=== PATIENT | female | born 1955 | race Caucasian/White ===

== ENCOUNTER → 2017-02-16 | Day surgery (SDC) | payer OTHER ==
[~2017-02-16] VITALS: Ht 162.5 cm; Wt 68.0 kg
[~2017-02-16] MED LIST: ALBUTEROL0.09 MG/A2 IH; ASPIRIN ADULT L81 M1 PO; ATIVAN0.5 MG PO; BACTRIM DS 8001 TA1 PO; BUSPAR10 MG PO; CALCITRIOL0.25 MCG PO; CALCIUM; COREG; FOLIC ACID1 MG PO; FOSAMAX70 MG PO; LAMOTRIGINE; LIDODERM5% TP; MAGNESIUM; NORVASC10 MG PO; NUCYNTA50 MG PO; PRAVASTATIN SOD40 MG PO; PRILOSEC20 MG PO; SEROQUEL50 MG PO; SYNTHROID,LEV150 MCG PO; VIBRAMYCIN100 MG PO; VICODIN 5-3001 EACH PO; VIT D; VOLTAREN; ZANAFLEX2 M1 PO
--- NOTE | ~2017-02-16 | O ---
[place], [place] OPERATIVE NOTE NAME: DAQUAN GIORDANO UNIT #: [id number] ROOM: DOCTOR: OLEG MANLEY MD BIRTHDATE: [birth year] DOS: 02/16/2017 GASTROENDOSCOPIC REPORT HISTORY OF PRESENT ILLNESS: A 61-year-old patient presented with chief complaint of colonic screening, undergoing investigation. ALLERGIES: MORPHINE AND IVP DYE. FAMILY HISTORY: Mother with colonic carcinoma. PAST MEDICAL HISTORY: Hypertension, hypercholesterolemia. PAST SURGICAL HISTORY: Thyroid, Mediport cholecystectomy, wrist surgery, coronary artery stents. SOCIAL HISTORY: Nonsmoker, nonalcohol consumer. PROCEDURE: Today's procedure part of investigation is colonoscopy plus polypectomy. PREMEDICATION: Versed and Diprivan. SCOPE: Olympus forward-viewing colonoscope 10L video. REPORT: After putting the patient in the left lateral position and application of lubricant to the scope, the scope was introduced. Thereafter, under direct visualization, I advanced through the length of colon without difficulty. Base of the cecum explored, appendiceal orifice identified, and ileocecal valve was defined. The scope was gradually withdrawn back to the sigmoid colon. Sessile polypoid lesion with piecemeal polypectomy was removed. The patient extubated, tolerated procedure well. IMPRESSION: Sessile colonic polyp, sigmoid colon, status post piecemeal polypectomy. PLAN: High fiber diet. ACTIVITY: Ad gloria. FOLLOWUP: Routinely with you in office, p.r.n. visit with us in GI Clinic. I thank you very much indeed for your kind referral. Sincerely, [place], [place] OPERATIVE NOTE NAME: DAQUAN GIORDANO UNIT #: [id number] ROOM: DOCTOR: OLEG MANLEY MD BIRTHDATE: [birth year] OLEG MANLEY MD CM:OPRECORD:OPERATIVE NOTE [id number] OLEG MANLEY MD 02/16/172003 interface
[2017-02-16 14:32] VITALS: BP 135/71
[2017-02-16 14:34] VITALS: BP 124/74
[2017-02-16 14:51] VITALS: BP 132/75
[2017-02-16 15:17] VITALS: BP 150/76
== END | disposition home or self-care (01) ==
LOC: SDC 02-14 08:45
DX: Z12.11 Encounter for screening for malignant neoplasm of colon (principal); K63.5 Polyp of colon; I10 Essential (primary) hypertension; E78.00 Pure hypercholesterolemia, unspecified; Z80.0 Family history of malignant neoplasm of digestive organs; Z95.818 Presence of other cardiac implants and grafts; Z98.890 Other specified postprocedural states; Z86.73 Personal history of transient ischemic attack (TIA), and cerebral infarction without residual deficits; J45.909 Unspecified asthma, uncomplicated; D84.8 Other specified immunodeficiencies; F17.210 Nicotine dependence, cigarettes, uncomplicated; Z83.3 Family history of diabetes mellitus; Z82.49 Family history of ischemic heart disease and other diseases of the circulatory system; Z82.3 Family history of stroke

== ENCOUNTER → 2017-04-09 | Outpatient (CLI) | payer OTHER | END | disposition home or self-care (01) | LOC: LAB 15:46 | DX: D83.9 Common variable immunodeficiency, unspecified (principal) ==

== ENCOUNTER 2017-05-10 11:40 | Emergency (ER) | payer OTHER ==
[~2017-05-10] VITALS: Ht 162.5 cm; Wt 72.6 kg
[2017-05-10 11:50] VITALS: BP 120/72
== END 2017-05-10 14:42 | disposition home or self-care (01) ==
LOC: ED 11:40
DX: S63.502A Unspecified sprain of left wrist, initial encounter (principal); Z79.82 Long term (current) use of aspirin; Z88.6 Allergy status to analgesic agent; Z90.49 Acquired absence of other specified parts of digestive tract; Z91.041 Radiographic dye allergy status; W18.30XA Fall on same level, unspecified, initial encounter; Y93.89 Activity, other specified; Y92.9 Unspecified place or not applicable; Y99.9 Unspecified external cause status

== ENCOUNTER 2017-07-18 10:32 | Inpatient (IN) | payer OTHER ==
[~2017-07-18] VITALS: Ht 162.5 cm; Wt 74.2 kg
--- NOTE | ~2017-07-18 | PR ---
[place], [place] PROGRESS NOTE NAME: DAQUAN GIORDANO UNIT #: [id number] ROOM: 522 DOCTOR: SYLVAIN VU MD BIRTHDATE: [birth year] DOS: 07/20/2017 SUBJECTIVE: She has noticed partial reduction in symptoms of cough. She has noticed small amount of sputum expectoration. Wheezing were noted somewhat decreased. There were no symptoms of chest pain. OBJECTIVE: VITAL SIGNS: Normal temperature, respiratory rate 20, heart rate 84, blood pressure 135/76. Pulse oxygen saturation recorded on 2 liters nasal cannula 95% saturation. HEENT: No acute change. NECK: Supple. CARDIOVASCULAR: S1, S2 audible. LUNGS: Moderate decreased breath sounds with [id number] expiratory wheezing, partially decreased from previous examination. ABDOMEN: Soft, nontender. EXTREMITIES: Showed no edema. LABORATORY DATA: BMP today; glucose 202, otherwise noted normal. The blood culture from the showed no bacterial growth in 2 cultures. The chest x-ray 2-view for this patient that was ordered. The patient this morning was personally reviewed, shows increased interstitial marking in the lower lungs with the current chest x-ray. There were no discrete pulmonary fibrotic changes noted. Granuloma was also suspected scattered in the lungs. IMPRESSION: The patient with acute exacerbation of chronic obstructive pulmonary disease with acute tracheobronchitis. The patient is responding to treatment at this time. Leukocytosis was still noted. PLAN OF TREATMENT: Continuation of the bronchodilators with oxygen supplementation as in progress. The dose of the Solu-Medrol will be changed to the lower dose of Solu-Medrol from 60 mg to 40 mg every 8 hours. In the meantime, continue all supportive therapy, plan of management, sputum culture. The patient is able to expectorate sputum. We will be monitored. Monitoring the leukocytosis partly may be related to use of corticosteroids. Other supportive therapy, plan of management and care. [place], [place] PROGRESS NOTE NAME: DAQUAN GIORDANO UNIT #: [id number] ROOM: 522 DOCTOR: SYLVAIN VU MD BIRTHDATE: [birth year] SYLVAIN MORIN MD CM:[id number] SYLVAIN VINES MD 07/21/177 interface
--- NOTE | ~2017-07-18 | PR ---
[place], [place] PROGRESS NOTE NAME: DAQUAN GIORDANO UNIT #: [id number] ROOM: 522 DOCTOR: MIKEL VINES MD,SYLVAIN BIRTHDATE: [birth year] DOS: 07/21/2017 SUBJECTIVE: She has been noted with significant reduction and improvement in the respiratory symptoms in the last 24 hours. Shortness of breath and cough has been resolving. There were no symptoms of chest pain. She has been receiving intravenous Levaquin. OBJECTIVE: VITAL SIGNS: Normal temperature, respiratory rate 16, heart rate 75, blood pressure 136/74. The pulse oxygen saturation 3 liters canula 98% saturation recorded. HEENT: No acute change. NECK: Supple. CARDIOVASCULAR: S1, S2 audible. LUNGS: Noted with mild decreased breath sounds without any wheezing or crackles. ABDOMEN: Soft, nontender. LABORATORY DATA: BMP: Glucose 171, remaining BMP normal. CBC: WBC count 19.6, and platelet count mildly elevated to 491,000, otherwise normal. IMPRESSION: 1. Resolving acute exacerbation of chronic obstructive pulmonary disease, acute tracheobronchitis progressively. 2. Leukocytosis is the effect of corticosteroids. 3. History of common variable hypogammaglobulinemia. PLAN OF MANAGEMENT: The patient may be considered for home discharge on oral tapering prednisone for this patient as well as Levaquin 550 mg p.o. daily for the next 5 days. High dose will be needed in the patient because of history of common variable hypogammaglobulinemia. Currently, the patient has received the intravenous Levaquin and responded to the treatment very well. SYLVAIN MORIN MD CM:PNTRANS [id number] SYLVAIN VINES MD 07/21/17 1634 interface
--- NOTE | ~2017-07-18 | CON ---
[place], [place] REPORT OF CONSULTATION NAME: DAQUAN GIORDANO UNIT #: [id number] ROOM: 522 DOCTOR: SYLVAIN VU MD BIRTHDATE: [birth year] DOS: 07/19/2017 REASON FOR CONSULTATION: Assess the patient for COPD exacerbation. HISTORY OF PRESENT ILLNESS: This 62-year-old white female with a history of past tobacco use with tobacco cessation done a couple of years ago. The patient presented to the hospital. The patient has been noted acutely ill in the past couple of weeks, started with upper chest cold symptoms initially, which noted gradual progression. The patient has been treated with antibiotics by the primary care physician and other medication without any response and improvement with symptom. She was also noted with fever, which has been noted at this time with burning in the chest. The cough has been noted, moderate to severe without any sputum expectoration. Denies symptoms of chest pain or hemoptysis. Denies symptoms of chest trauma. REVIEW OF SYSTEMS: CONSTITUTIONAL: Fatigue and tiredness noted without any symptoms of fever or chills. EYES: Denies any burning, redness, or tenderness. EARS, NOSE, THROAT SYMPTOMS: Denies sore throat, hoarseness, otalgia, postnasal drainage at this time. CARDIOVASCULAR: Denies any anginal pain, edema or pain of the lower extremities. GASTROINTESTINAL: Denies dysphagia, nausea, vomiting, diarrhea, abdominal pain, hematemesis, melena, hematochezia. SKIN: Denies lesions or rashes. MUSCULOSKELETAL: Denies acute joint pain, redness, or tenderness. CENTRAL NERVOUS SYSTEM: Denies dizziness, headache, diplopia or syncopal episodes. Remaining systems were reviewed and they were noted all negative. PAST MEDICAL HISTORY: 1. Bipolar disorder. 2. History of chronic obstructive pulmonary disease and bronchial asthma. 3. Congestive heart failure. 4. Anxiety and depression. 5. Judy disease. 6. Hyperlipidemia. 7. Hypothyroidism. 8. Essential hypertension. PAST SURGICAL HISTORY: 1. Cholecystectomy. 2. Partial thyroidectomy. 3. Tonsillectomy. 4. History of MediPort insertion. SOCIAL HISTORY: The patient stated that she lives at home. She was noted smoking since teenager, a pack of cigarettes per day until 2014. She is [place], [place] REPORT OF CONSULTATION NAME: DAQUAN GIORDANO UNIT #: [id number] ROOM: 522 DOCTOR: MIKEL VINES MD,SYLVAIN BIRTHDATE: [birth year] . She has 1 child. HOME MEDICATIONS: Listed as use of Proventil HFA inhaler, Norvasc, Abilify, aspirin, Lipitor, BuSpar, Voltaren, Mucinex, Vicodin, hydroxyzine, levothyroxine, lorazepam, IV immunoglobulins and tizanidine. The reason for immunoglobulin use were not correctly known. FAMILY HISTORY: Reported for diabetes mellitus in the father who at age 69 years, also known with myocardial infarction. Mother complication related to the metastatic colon cancer. DRUG ALLERGY HISTORY: 1. The patient was noted as allergy to the IVP DYE. 2. CODEINE, NEXIUM, MORPHINE. PHYSICAL EXAMINATION: GENERAL: This is a 62-year-old female who has been currently noted sitting on the bed with cough noted without any sputum expectoration. Upon assessment, height of 5 feet 4 inches, weight 163 pounds, BMI 28. VITAL SIGNS: Normal temperature, respiratory rate 20, heart rate 73, blood pressure 121/63-126/70. The pulse oxygen saturation recorded on 2 liters nasal cannula 94% saturation. HEENT: Head was atraumatic. Eyes, nonicterus. NECK: Supple. CARDIOVASCULAR: S1, S2 audible. LUNGS: General reduction in the breath sounds noted in the lungs bilaterally with diffuse expiratory wheezing, rhonchorous breathing and no crackles. ABDOMEN: Soft, nontender. Bowel sounds present. CENTRAL NERVOUS SYSTEM: The patient's cranial nerves 2-12 intact. No focal deficit. MUSCULOSKELETAL: No deformities. SKIN: No lesions or rashes. LABORATORY DATA: Lactic acid yesterday was noted 1.5, normal. PT/PTT yesterday on admission normal. CMP yesterday on admission, glucose 158, potassium 3.1, sodium 135. Remaining electrolytes were normal. CBC 07/18/2017 admission was noted as normal. CMP of this morning, glucose 171, BUN and creatinine was normal. Potassium is normal today. CBC of this morning, WBC count 20.5, hemoglobin 11.9, hematocrit 35.5, platelet count 453,000. The chest x-ray was done single view, noted changes of COPD, hyperinflation. Mild cardiomegaly was suspected. Prominent right pulmonary artery was also noted may be because of the rotational affect towards the left. Laparoscopic MediPort noted in place. FINAL IMPRESSION: 1. The patient who had been currently admitted to the hospital with progressive acute respiratory symptoms, mostly started with viral etiology, currently noted bacterial infection, severe bronchitis, impacted with mucus in the airways. 2. History of possible common variable hypogammaglobulinemia was suspected at this time, but further confirmation to be obtained accurately from her primary care physician's office notes. [place], [place] REPORT OF CONSULTATION NAME: DAQUAN GIORDANO UNIT #: [id number] ROOM: 522 DOCTOR: MIKEL VINES MD,SYLVAIN BIRTHDATE: [birth year] 3. History of nicotine abuse. 4. Acute exacerbation of chronic obstructive pulmonary disease as well. PLAN OF MANAGEMENT: The patient has been currently getting intravenous corticosteroids 60 mg q.8 h. that will be continued. She is also getting the high dose of Mucinex as well as flutter valve with bronchodilators administration. Monitor respiratory symptoms closely at this time. Obtain a chest x-ray, PA lateral view for assessment of cardiomegaly which was noted on the current chest, suggests 1 view and also assessed the hilar area. Collect the sputum for Gram stain and culture. Additional treatment changes will be made based on progression of the illness. At this time, the medication which had administered the patient suffice. Thanks for allowing me to participate in the care of this patient. SYLVAIN MORIN MD CM:CONSTR:REPORT OF CONSULTATION 1826 07/20/17 0327 interface
[2017-07-18 10:40] VITALS: BP 132/67
[2017-07-18 11:04] LABS: BASO % 0.3 % (0.0-1.0); EOS # 0.1 10*3/uL (0.0-0.4); HEMATOCRIT 36.2 % (37.0-47.0); HEMOGLOBIN 12.3 g/dl (12.0-16.0); LYMPH # 1.7 10*3/uL (1.3-4.4); LYMPH % 15.8 % (27.0-41.0); MEAN CELL VOLUME 88.9 fl (81.0-99.0); MEAN CORPUSCULAR HGB 30.2 pg (27.0-31.0); MEAN PLATELET VOLUME 9.3 fl (9.6-12.3); MONO # 0.6 10*3/uL (0.1-1.0); MONO % 5.5 % (3.0-9.0); NEUT % 76.7 % (47.0-73.0); PLATELET COUNT AUTOMATED 401 10*3/uL (130-400); RED BLOOD COUNT 4.07 10*6/uL (4.10-5.10); RED CELL DISTRI WIDTH 12.9 % (0-14.5); WHITE BLOOD COUNT 10.4 10*3/uL (4.8-10.8)
[2017-07-18 11:13] LABS: ACT PARTIAL THROMBO TIME 27.9 SECONDS (20.8-31.5); INTERNATIONAL NORM RATIO 0.9 (2.0-3.5)
[2017-07-18 11:21] LABS: ALBUMIN 2.8 gm/dl (3.1-4.5); ALKALINE PHOSPHATASE 126 U/L (45-117); BUN 9 mg/dl (7-24); CHLORIDE 98 mmol/L (98-107); CREATININE 0.64 mg/dL (0.55-1.02); LIPASE 146 U/L (73-393); MAGNESIUM 2.1 mg/dL (1.5-2.1); POTASSIUM 3.1 mmol/L (3.5-5.1); SGOT/AST 26 IU/L (3-35); SGPT/ALT 18 U/L (12-78); SODIUM 135 mmol/L (136-145); TOTAL PROTEIN 7.4 gm/dL (6.4-8.2)
[2017-07-18 11:22] LABS: TROPONIN I < 0.015 ng/ml (<0.045)
--- NOTE | 2017-07-18 12:10 | NUR ---
PT ASSESSED FOR HOME O2 IN THE ER SETTING ORDERED BY DR. MENSAH SAT 95% WITH 2L/M NC APPLIED AT REST SAT 88% RA AT REST SAT 92% WHEN REAPPLYING NC AT 2L/M AT REST SAT 87% WITH 2L/M NC APPLIED DURING AMBULATION SAT 87% WITH 3L/M NC APPLIED DURING AMBULATION SAT 91-92% WITH 3L/M NC APPLIED DURING AMBULATION NOTICABLE SOB SAT 94% AT REST WITH 3L/M NC APPLIED DURING RECOVERY SAT 95% AT REST WITH 2L/M NC APPLIED DURING RECOVERY HR 74 BEFORE ASSESSMENT 69 AFTER ASSESSMENT BP 132/67 BEFORE ASSESSSMENT 114/44 AFTER ASSESSMENT PT WALKING [address] ER[address] MENSAH NOTIFIED OF RESULTS.
[2017-07-18] MEDS ORDERED: PROVENTIL HFA6.7 GM INH (13:39)
[2017-07-18 13:40] VITALS: BP 130/69
[2017-07-18] MEDS ORDERED: NORVASC5 MG PO (13:40)
--- NOTE | 2017-07-18 13:40 | NUR ---
A 62YO FEMALE, admitted to , under the services of ALEKSANDRA Brown DO with a diagnosis of . Chief complaint is SHORTNESS OF BREATH, NONPRODUCTIVE COUGH AND WEAKNESS FOR 2 WEEKS. Patient arrived via stretcher from ER. Monitor applied. Initial assessment completed. Vital signs taken and recorded. ALEKSANDRA BROWN DO notified of admission to the unit. Orders received. See assessment for past medical history, medications and allergies. Patient and/or family oriented to unit. [facility] reviewed. Clothing/patient valuable form completed. NANDO CAMPBELL
[2017-07-18] MEDS ORDERED: BUSPAR15 MG PO (13:41)
[2017-07-18] MEDS ORDERED: ABILIFY10 MG PO (13:42)
[2017-07-18 13:43] VITALS: BP 130/69
[2017-07-18] MEDS ORDERED: LEVOTHYROXINE125 MCG PO (13:44)
[2017-07-18] MEDS ORDERED: LIPITOR80 MG PO (13:45)
[2017-07-18] MEDS ORDERED: HYDROXYZINE HCL25 M1 PO (13:46)
[2017-07-18] MEDS ORDERED: VOLTAREN100 GM T (13:47)
[2017-07-18] MEDS ORDERED: CALTRATE GUMMY1 EACH PO (13:48)
--- NOTE | 2017-07-18 13:49 | NUR ---
PATIENT HAD MEDICATION LIST. MEDS REVIEWED WITH PATIENT AND MED REC UPDATED.
[2017-07-18] MEDS ORDERED: GUAIFENESIN600 MG PO (14:05)
[2017-07-18] MEDS ORDERED: IMMUNOGLOBULIN IV (14:07)
[2017-07-18 16:00] VITALS: BP 122/56
--- NOTE | 2017-07-18 16:30 | NUR ---
MEDICATED WITH MUCINEX FOR COUGH.
[2017-07-18] MEDS ORDERED: BUSPIRONE30 MG PO (17:30)
[2017-07-18 18:18] LABS: BILIRUBIN NEGATIVE (NEGATIVE); BLOOD 1+ (NEGATIVE); CLARITY CLEAR (CLEAR); COLOR YELLOW (YELLOW); GLUCOSE TRACE (NEGATIVE); KETONE NEGATIVE (NEGATIVE); LEUKO ESTERASE NEGATIVE (NEGATIVE); NITRITE NEGATIVE (NEGATIVE); PH 5.5 (5.0-9.0); SPECIFIC GRAVITY <= 1.005 (1.005-1.030); UROBILINOGEN 0.2 E.U./dl (0.2-1.0)
[2017-07-18 18:31] LABS: BACTERIA 2+; EPITHELIAL CELLS 16-20
[2017-07-18 20:00] VITALS: BP 128/72; BP 136/67
--- NOTE | 2017-07-18 20:00 | NUR ---
PATIENT IS AWAKE, ALERT AND ORIENTED X3. PLEASANT AND COOPERATIVE WITH ASSESSMENT. LUNGS HAVE SCATTERED RHONCI AND I&E WHEEZES THROUGHOUT LUNGFIELDS. O2 VIA NASAL CANNULA INTACT. PATIENT STATES THAT SHE HAS A HARSH NON-PRODUCTIOVE COUGH. ABDOMEN IS SOFT AND NON-TENDER UPON PALPATION, BOWEL SOUNDS ARE NORMOACTIVE X 4 QUADS. NO EDEMA TO BLE, PPP. PATIENT HAS C/O PAIN IN HER RIGHT WRIST STATES THAT THIS IS A CHRONIC PAIN AND IS DULL AND ACHY. PRN TYLENOL GIVEN AT THIS TIME ALSO VOLTAREN OINTMENT APPLIED. PATIENT DENIES ANY FURTHER NEEDS AT THIS TIME. CALL LIGHT IS IN REACH.
--- NOTE | 2017-07-18 21:25 | NUR ---
PER PATIENT THE TYLENOL HAS BEEN EFFECTIVE AT THIS TIME. CALL LIGHT IS IN REACH.
--- NOTE | 2017-07-18 22:20 | NUR ---
PATIENT REQUESTED SOMETHING FOR SLEEP. DR. MENDOZA WAS CALLED AT THIS TIME AND AFTER REVIEWING THIS PATIENTS MEDICATIONS THAT SHE HAD TAKEN THIS EVENING NO NEW ORDERS. JD HAD THIS EXPLAINED TO HER AND AGREED.
[2017-07-19] VITALS: BP 126/70
--- NOTE | 2017-07-19 06:29 | NUR ---
PATIENT AROUSES EASILY FOR MORNING MEDICAITONS AT THIS TIME. ALERT AND ORIENTED X3. PLEASANT AND COOPERATIVE. DENIES ANY NEEDS AT THE PRESENT TIME. CALL LIGHT IS IN REACH.
[2017-07-19 06:52] LABS: BASO % 0.1 % (0.0-1.0); HEMATOCRIT 35.2 % (37.0-47.0); HEMOGLOBIN 11.9 g/dl (12.0-16.0); LYMPH % 4.9 % (27.0-41.0); MEAN CELL VOLUME 91.4 fl (81.0-99.0); MEAN CORPUSCULAR HGB 30.9 pg (27.0-31.0); MEAN CORPUSCULAR HGB CONC 33.8 g/dl (33.0-37.0); MEAN PLATELET VOLUME 9.6 fl (9.6-12.3); MONO # 1.1 10*3/uL (0.1-1.0); MONO % 5.2 % (3.0-9.0); NEUT # 18.2 10*3/uL (2.3-7.9); NEUT % 88.6 % (47.0-73.0); PLATELET COUNT AUTOMATED 453 10*3/uL (130-400); RED BLOOD COUNT 3.85 10*6/uL (4.10-5.10); RED CELL DISTRI WIDTH 13.1 % (0-14.5); WHITE BLOOD COUNT 20.5 10*3/uL (4.8-10.8)
[2017-07-19 07:40] LABS: ALBUMIN 2.7 gm/dl (3.1-4.5); ALKALINE PHOSPHATASE 145 U/L (45-117); BUN 11 mg/dl (7-24); CHLORIDE 100 mmol/L (98-107); CREATININE 0.59 mg/dL (0.55-1.02); MAGNESIUM 2.1 mg/dL (1.5-2.1); POTASSIUM 3.7 mmol/L (3.5-5.1); SGOT/AST 18 IU/L (3-35); SGPT/ALT 20 U/L (12-78); SODIUM 136 mmol/L (136-145); TRIGLYCERIDES 94 mg/dl (<150); VLDL CHOLESTEROL 19 mg/dL (6-40)
[2017-07-19 07:50] LABS: CHOLESTEROL 126 mg/dL (<200); FREE T4 1.17 ng/dl (0.76-1.46); HDL CHOLESTEROL 71 mg/dl (40-60); LDL CHOLESTEROL 36 mg/dL (9-159); PHOSPHOROUS 3.2 mg/dL (2.5-4.9); TOTAL PROTEIN 7.3 gm/dL (6.4-8.2)
[2017-07-19 07:59] LABS: VITAMIN D, 25-HYDROXY 13.5 ng/mL (30-100)
[2017-07-19 08:00] VITALS: BP 131/74
[2017-07-19] MEDS ORDERED: TESSALON PERLE100 MG PO (10:18)
[2017-07-19 12:00] VITALS: BP 135/77
--- NOTE | 2017-07-19 12:30 | NUR ---
SPOKE TO DR SALCEDO REGARDING PT REQUEST FOR TESSALON PEARLS FOR COUGH. PT DOES TAKE THIS AND IS ON HOME MED LIST AND RECONCILED.
--- NOTE | 2017-07-19 14:02 | NUR ---
NOTIFIED DR MORIN VIA VOICEMAIL OF NEW CONSULT FOR COPD.
[2017-07-19 16:00] VITALS: BP 121/63
--- NOTE | 2017-07-19 19:26 | NUR ---
SPOKE WITH DR. DESAI AT THIS TIME DUE TO PATIETN REQUESTING TESSALON PEARLS FOR HARSH HACKING COUGH.
[2017-07-19 20:00] VITALS: BP 130/70; BP 135/84
--- NOTE | 2017-07-19 20:15 | NUR ---
PATIENT IS AWAKE, ALERT AND ORIENTED X3. PLEASANT AND COOPERATIVE WITH ASSESSMENT. LUNGS HAVE SCATTERED RHONCI AND WHEEZING THROUGHOUT. HARSH NON-PRODUCTIVE COUGH . 02 VIA NSAL CANNULA AT 2LPM. PATIENT REQUESTED SOMETHING FOR COUGH, PRN TESSALON GIVEN AT THIS TIME. ABDOMEN IS SOFT AND NON-TENDER UPON PALPATION, BOWEL SOUNDS ARE NORMOACTIVE X 4 QUADS. NO EDEMA TO BLE, PPP. PATIENT DENIES ANY PAIN. CALL LIGHT IS IN REACH.
[2017-07-20] VITALS: BP 149/75
--- NOTE | 2017-07-20 06:18 | NUR ---
PATIENT AROUSES EASILY FOR MORNING MEDICATIONS. ALERT AND ORIENTED. DENIES ANY NEEDS AT THE PRESENT TIME. CALL LIGHT IS IN REACH.
[2017-07-20 07:09] LABS: BASO % 0.1 % (0.0-1.0); HEMATOCRIT 34.2 % (37.0-47.0); HEMOGLOBIN 11.3 g/dl (12.0-16.0); LYMPH # 1.3 10*3/uL (1.3-4.4); LYMPH % 6.5 % (27.0-41.0); MEAN CELL VOLUME 91.9 fl (81.0-99.0); MEAN CORPUSCULAR HGB 30.4 pg (27.0-31.0); MEAN PLATELET VOLUME 9.3 fl (9.6-12.3); MONO % 4.8 % (3.0-9.0); NEUT # 17.3 10*3/uL (2.3-7.9); NEUT % 87.2 % (47.0-73.0); PLATELET COUNT AUTOMATED 469 10*3/uL (130-400); RED BLOOD COUNT 3.72 10*6/uL (4.10-5.10); RED CELL DISTRI WIDTH 13.4 % (0-14.5); WHITE BLOOD COUNT 19.8 10*3/uL (4.8-10.8)
[2017-07-20 07:33] LABS: BUN 14 mg/dl (7-24); CHLORIDE 102 mmol/L (98-107); CREATININE 0.62 mg/dL (0.55-1.02); POTASSIUM 4.3 mmol/L (3.5-5.1); SODIUM 137 mmol/L (136-145)
[2017-07-20 08:00] VITALS: BP 133/72
--- NOTE | 2017-07-20 08:00 | NUR ---
Lead Generation Specialist in to talk to patient. Patient states lives at HOME ALONE with . There are 4 steps in the home. Physician: DR GREWAL Pharmacy: [facility] [place] Home health services: NONE Patient's level of ADLs: INDEPENDENT Patient has working utilities: YES DME: NEBULIZER NO O2 Follow-up physician's appointment after d/c: WILL BE MADE PRIOR TO DC Does patient want to access PORTAL?: Discharge plan HOME. NANCY LINN
--- NOTE | 2017-07-20 10:46 | NUR ---
PT REQUEST TESSALON PERLES FOR COUGH. ADMINISTERED PO. WILL MONITOR FOR EFFECTIVENESS. CALL LIGHT IN REACH.
[2017-07-20 12:00] VITALS: BP 135/76
[2017-07-20 16:00] VITALS: BP 128/63
--- NOTE | 2017-07-20 19:47 | NUR ---
PATIENT IS AWAKE, ALERT AND ORIENTED X3. PLEASANT AND COOPERATIVE. LUNGS HAVE SCATTERED RHONCI AND I&E WHEEZING THROUGHOUT LUNGFIELDS, HARSH NON-PRODUCTIVE COUGH. 02 VIA NASAL CANULA INTACT AT 2LPM. ABDOMEN IS SOFT AND NON-TENDER UPON PALPATION, BOWEL SOUNDS ARE NORMOACTIVE X 4 QUADS. NO EDEMA TO BLE, PPP. JD REQUESTED TO HAVE HER MEDICATIONS AT THIS TIME D/T WANTING TO GET SOME SLEEP BECAUSE SHE HAS NOT HAD ANY SLEEP IN 3 DAYS . PRN RESTORIL AND TESSALON PEARLS GIVEN TO PATIENT AT THIS TIME. ALL HS MEDICATIONS ALSO GIVEN. PATIENT DENIES ANY FURTHER NEEDS AT THE PRESENT TIME. CALL LIGHT IS IN REACH.
[2017-07-20 20:00] VITALS: BP 141/83
--- NOTE | 2017-07-20 20:47 | NUR ---
24 HOUR CHART CHECK COMPLETED AT THIS TIME.
[2017-07-21] VITALS: BP 136/74
--- NOTE | 2017-07-21 00:27 | NUR ---
PATIENT AWAKE AT THIS TIME USING HER NEBULIZER PER ORDERS. PATIENT DNEIES ANY NEEDS AND STATES THAT HER SLEEPING MEDICATION HAS BEEN EFFECTIVE AT THIS TIME. CALL LIGHT IS IN REACH.
--- NOTE | 2017-07-21 05:09 | NUR ---
PATIENT AROUSES EASILY FOR MORNING MEDICATIONS. ALERT AND ORIENTED. VERBALIZED C/O COUGH AND HEADACHE. PRN TYLENOL AND TESSALON PEARLS GIVEN AT THIS TIME. CALL LIGHT IS IN REACH.
--- NOTE | 2017-07-21 06:03 | NUR ---
PATIENT RESTING IN BED WITH EYES CLOSED BILATERALLY, RESPIRATIONS ARE EASY AND REGULAR. O2 INTACT VIA NASAL . PRN MEDICATIONS EFFECTIVE AT THIS TIME. CALL LIGHT IS IN REACH.
[2017-07-21 06:29] LABS: MEAN CELL VOLUME 91.8 fl (81.0-99.0); MEAN CORPUSCULAR HGB 30.6 pg (27.0-31.0); MEAN CORPUSCULAR HGB CONC 33.3 g/dl (33.0-37.0); PLATELET COUNT AUTOMATED 495 10*3/uL (130-400); RED BLOOD COUNT 3.92 10*6/uL (4.10-5.10); RED CELL DISTRI WIDTH 13.6 % (0-14.5); WHITE BLOOD COUNT 19.6 10*3/uL (4.8-10.8)
[2017-07-21 06:53] LABS: BUN 17 mg/dl (7-24); CHLORIDE 102 mmol/L (98-107); CREATININE 0.65 mg/dL (0.55-1.02); SODIUM 137 mmol/L (136-145)
[2017-07-21 07:03] LABS: PLATELET SUFFICIENCY HIGH (NORMAL); TOTAL CELLS COUNTED 100 #CELLS
[2017-07-21 08:00] VITALS: BP 136/74
[2017-07-21] MEDS ORDERED: LEVAQUIN750 M1 PO (10:50)
[2017-07-21] MEDS ORDERED: PREDNISONE10 MG PO (10:50)
--- NOTE | 2017-07-21 11:53 | NUR ---
PT WAS ASSESSED FOR HOME OXYGEN. PT DID NOT QUALIFY. PT AT REST SPO2 94% RA, HR 75, RR 16, B/P 137/65 PT AMBULATED THE LENTH OF THE FOURTH FLOOR SPO2 91-93% RA PT AT REST SPO2 95% RA, HR 95, RR 20, B/P 136/77
[2017-07-21 12:00] VITALS: BP 147/78
[2017-07-21] MEDS ORDERED: VITAMIN D31000 UNI1 PO (12:22)
--- NOTE | 2017-07-21 14:18 | NUR ---
Discharge instructions reviewed with patient/family. Patient receptive and verbalizes understanding. Follow-up care arranged. Written instructions given to patient/family. TATA MARI
== END 2017-07-21 14:18 | disposition home or self-care (01) | DRG 189 ==
LOC: ED 10:32 → EDHOLD 12:34 → 5E 12:34
PROVIDERS: Emergency Medicine; Internal Medicine; ADMIT Internal Medicine
DX: J96.01 Acute respiratory failure with hypoxia (principal); J18.9 Pneumonia, unspecified organism; I11.0 Hypertensive heart disease with heart failure; D80.1 Nonfamilial hypogammaglobulinemia; E44.0 Moderate protein-calorie malnutrition; J44.0 Chronic obstructive pulmonary disease with (acute) lower respiratory infection; I50.32 Chronic diastolic (congestive) heart failure; J45.901 Unspecified asthma with (acute) exacerbation; F31.60 Bipolar disorder, current episode mixed, unspecified; J44.1 Chronic obstructive pulmonary disease with (acute) exacerbation; Z68.28 Body mass index [BMI] 28.0-28.9, adult; I25.119 Atherosclerotic heart disease of native coronary artery with unspecified angina pectoris; E78.5 Hyperlipidemia, unspecified; E06.3 Autoimmune thyroiditis; E66.3 Overweight; R07.82 Intercostal pain; E55.9 Vitamin D deficiency, unspecified; Z88.5 Allergy status to narcotic agent; Z88.6 Allergy status to analgesic agent; Z91.041 Radiographic dye allergy status; J20.9 Acute bronchitis, unspecified; T38.0X5A Adverse effect of glucocorticoids and synthetic analogues, initial encounter

== ENCOUNTER → 2017-08-27 | Outpatient (CLI) | payer OTHER ==
[~2017-08-27] MED LIST changes: +ABILIFY10 MG PO; +BUSPAR15 MG PO; +BUSPIRONE30 MG PO; +CALTRATE GUMMY1 EACH PO; +GUAIFENESIN600 MG PO; +HYDROXYZINE HCL25 M1 PO; +IMMUNOGLOBULIN IV; +LEVAQUIN750 M1 PO; +LEVOTHYROXINE125 MCG PO; +LIPITOR80 MG PO; +NORVASC5 MG PO; +PREDNISONE10 MG PO; +PROVENTIL HFA6.7 GM INH; +TESSALON PERLE100 MG PO; +VITAMIN D31000 UNI1 PO; +VOLTAREN100 GM T
[2017-08-27 09:35] LABS: BASO # 0.1 10*3/uL (0.0-0.1); BASO % 0.7 % (0.0-1.0); EOS # 0.1 10*3/uL (0.0-0.4); EOS % 0.6 % (1.0-4.0); HEMATOCRIT 39.8 % (37.0-47.0); LYMPH # 2.9 10*3/uL (1.3-4.4); LYMPH % 36.1 % (27.0-41.0); MEAN CELL VOLUME 93.2 fl (81.0-99.0); MEAN CORPUSCULAR HGB 30.4 pg (27.0-31.0); MEAN CORPUSCULAR HGB CONC 32.7 g/dl (33.0-37.0); MEAN PLATELET VOLUME 9.9 fl (9.6-12.3); MONO # 0.7 10*3/uL (0.1-1.0); NEUT # 4.3 10*3/uL (2.3-7.9); NEUT % 53.2 % (47.0-73.0); PLATELET COUNT AUTOMATED 317 10*3/uL (130-400); RED BLOOD COUNT 4.27 10*6/uL (4.10-5.10); WHITE BLOOD COUNT 8.1 10*3/uL (4.8-10.8)
[2017-08-27 10:04] LABS: BUN 6 mg/dl (7-24); CHLORIDE 108 mmol/L (98-107); CHOLESTEROL 170 mg/dL (<200); CREATININE 0.75 mg/dL (0.55-1.02); HDL CHOLESTEROL 107 mg/dl (40-60); LDL CHOLESTEROL 46 mg/dL (9-159); POTASSIUM 4.2 mmol/L (3.5-5.1); SGOT/AST 17 IU/L (3-35); SGPT/ALT 27 U/L (12-78); SODIUM 142 mmol/L (136-145); TRIGLYCERIDES 84 mg/dl (<150); VLDL CHOLESTEROL 17 mg/dL (6-40)
== END | disposition home or self-care (01) ==
LOC: LAB 09:08
PROVIDERS: Internal Medicine Cardiovascular Disease
DX: I25.10 Atherosclerotic heart disease of native coronary artery without angina pectoris (principal)

== ENCOUNTER → 2018-10-03 | Outpatient (CLI) | payer OTHER ==
--- NOTE | 2018-10-03 15:31 | NUR ---
6 minute walk: Pt.'s spo2 at rest was 93%, R.R. 20, H.R. 91, B/P 123/66. Pt. was ambulated for approximately 6 minutes and her lowest Spo2 was 91% while ambulating. Post ambulation her H.R. was 113, R.R. 28, Spo2 93%, B/P 136/106. Pt. stated that she was a "little short of breath". Pt. appeared to be comfortable and returned to baseline after several minutes.
== END | disposition home or self-care (01) ==
LOC: CP 14:58
DX: I25.10 Atherosclerotic heart disease of native coronary artery without angina pectoris (principal); R09.02 Hypoxemia

== ENCOUNTER → 2018-10-31 | Outpatient (CLI) | payer OTHER ==
[2018-10-31 13:10] LABS: BUN 12 mg/dl (7-24); CHLORIDE 102 mmol/L (98-107); CREATININE 0.96 mg/dL (0.55-1.02); POTASSIUM 3.3 mmol/L (3.5-5.1); SODIUM 140 mmol/L (136-145)
== END | disposition home or self-care (01) ==
LOC: LAB 03:10
PROVIDERS: Internal Medicine Cardiovascular Disease
DX: I10 Essential (primary) hypertension (principal)

== ENCOUNTER → 2020-04-01 | Outpatient (CLI) | payer OTHER ==
[2020-04-01 08:33] LABS: BASO # 0.1 10*3/uL (0.0-0.1); BASO % 0.6 % (0.0-1.0); EOS # 0.2 10*3/uL (0.0-0.4); EOS % 1.9 % (1.0-4.0); HEMATOCRIT 41.2 % (37.0-47.0); LYMPH # 2.8 10*3/uL (1.3-4.4); LYMPH % 33.3 % (27.0-41.0); MEAN CELL VOLUME 92.8 fl (81.0-99.0); MEAN CORPUSCULAR HGB 29.5 pg (27.0-31.0); MEAN CORPUSCULAR HGB CONC 31.8 g/dl (33.0-37.0); MEAN PLATELET VOLUME 10.2 fl (9.6-12.3); MONO # 0.8 10*3/uL (0.1-1.0); MONO % 9.3 % (3.0-9.0); NEUT # 4.6 10*3/uL (2.3-7.9); NEUT % 54.7 % (47.0-73.0); PLATELET COUNT AUTOMATED 320 10*3/uL (130-400); RED BLOOD COUNT 4.44 10*6/uL (4.10-5.10); RED CELL DISTRI WIDTH 13.5 % (0-14.5); WHITE BLOOD COUNT 8.4 10*3/uL (4.8-10.8)
[2020-04-01 09:02] LABS: BUN 12 mg/dl (7-24); CHLORIDE 110 mmol/L (98-107); CREATININE 0.85 mg/dL (0.55-1.02); POTASSIUM 4.1 mmol/L (3.5-5.1); SODIUM 140 mmol/L (136-145)
== END | disposition home or self-care (01) ==
LOC: LAB 00:44
PROVIDERS: Internal Medicine Cardiovascular Disease
DX: I25.10 Atherosclerotic heart disease of native coronary artery without angina pectoris (principal); I10 Essential (primary) hypertension

== ENCOUNTER → 2020-07-19 | Outpatient (CLI) | payer OTHER, MEDICAID | END | disposition home or self-care (01) | LOC: LAB 15:24 | PROVIDERS: ATTEND Internal Medicine Critical Care Medicine | DX: D64.9 Anemia, unspecified (principal); R53.83 Other fatigue ==

== ENCOUNTER → 2021-01-04 | Outpatient (CLI) | payer OTHER, MEDICAID | END | disposition home or self-care (01) | LOC: LAB 01-03 10:49 | PROVIDERS: ATTEND Allergy & Immunology | DX: D80.1 Nonfamilial hypogammaglobulinemia (principal); J40 Bronchitis, not specified as acute or chronic ==

== ENCOUNTER → 2021-06-22 | Outpatient (CLI) | payer OTHER, MEDICAID | END | disposition home or self-care (01) | LOC: MAMMO 00:10 | PROVIDERS: ATTEND Internal Medicine | DX: Z12.31 Encounter for screening mammogram for malignant neoplasm of breast (principal) ==

== ENCOUNTER → 2021-10-12 | Outpatient (CLI) | payer OTHER, MEDICAID ==
[2021-10-12 07:43] LABS: THYROID STIM HORMONE (HS) 4.15 uIU/ml (0.358-4.75)
== END ==
LOC: LAB 00:22
PROVIDERS: ATTEND Internal Medicine
DX: D83.9 Common variable immunodeficiency, unspecified (principal); Z79.899 Other long term (current) drug therapy

== ENCOUNTER → 2022-04-26 | Outpatient (CLI) | payer OTHER, MEDICAID | END | disposition home or self-care (01) | LOC: LAB 01:01 | PROVIDERS: ATTEND Allergy & Immunology | DX: D80.3 Selective deficiency of immunoglobulin G [IgG] subclasses (principal) ==

== ENCOUNTER → 2022-06-22 | Outpatient (CLI) | payer OTHER, MEDICAID ==
[2022-06-22 09:19] LABS: ALKALINE PHOSPHATASE 80 U/L (45-117); BUN 13 mg/dl (7-24); CHLORIDE 110 mmol/L (98-107); CREATININE 0.81 mg/dL (0.55-1.02); POTASSIUM 4.4 mmol/L (3.5-5.1); SGOT/AST 16 IU/L (3-35); SGPT/ALT 20 U/L (12-78); SODIUM 139 mmol/L (136-145); TOTAL PROTEIN 6.8 gm/dL (6.4-8.2)
[2022-06-23 13:06] LABS: ENDOMYSIAL ANTIBODY IgA Negative (Negative)
[2022-06-23 16:08] LABS: t-TRANSGLUTAMINASE (tTG) IGA <2 U/mL (0-3); t-TRANSGLUTAMINASE (tTG) IgG <2 U/mL (0-5)
== END | disposition home or self-care (01) ==
LOC: LAB 06-21 18:49
PROVIDERS: Nurse Practitioner Family; ATTEND Student in an Organized Health Care Education/Training Program
DX: R19.7 Diarrhea, unspecified (principal)

== ENCOUNTER → 2022-10-31 | Outpatient (CLI) | payer OTHER ==
[2022-10-31 09:45] LABS: CHOLESTEROL 132 mg/dL (<200); LDL CHOLESTEROL 62 mg/dL (9-159); TRIGLYCERIDES 62 mg/dl (<150)
== END | disposition home or self-care (01) ==
LOC: LAB 01:16
PROVIDERS: ATTEND Internal Medicine Cardiovascular Disease
DX: E78.5 Hyperlipidemia, unspecified (principal)

== ENCOUNTER 2022-12-11 15:53 | Emergency (ER) | payer OTHER ==
[2022-12-12] MEDS ORDERED: IBU600 M1 PO (14:43)
== END 2022-12-11 16:06 | disposition left against medical advice (07) ==
LOC: ED 15:53
DX: M25.50 Pain in unspecified joint (principal); Z53.21 Procedure and treatment not carried out due to patient leaving prior to being seen by health care provider

== ENCOUNTER 2022-12-12 12:57 | Emergency (ER) | payer OTHER ==
[~2022-12-12 12:57] MED LIST changes: -IBU600 M1 PO
[2022-12-12 13:07] VITALS: BP 137/79
[2022-12-12] MEDS ORDERED: IBU600 M1 PO (14:43)
== END 2022-12-12 14:53 | disposition home or self-care (01) ==
LOC: ED 12:57
DX: M13.842 Other specified arthritis, left hand (principal); Z91.041 Radiographic dye allergy status; Z88.6 Allergy status to analgesic agent; Z79.899 Other long term (current) drug therapy; Z79.82 Long term (current) use of aspirin; Z90.49 Acquired absence of other specified parts of digestive tract; Z90.89 Acquired absence of other organs; Z87.891 Personal history of nicotine dependence

== ENCOUNTER → 2022-12-12 | Outpatient (CLI) | payer OTHER ==
[~2022-12-12] MED LIST changes: +IBU600 M1 PO
== END | disposition home or self-care (01) ==
LOC: CARD 00:25
PROVIDERS: ATTEND Internal Medicine Cardiovascular Disease
DX: I25.10 Atherosclerotic heart disease of native coronary artery without angina pectoris (principal); I49.3 Ventricular premature depolarization; I49.1 Atrial premature depolarization

== ENCOUNTER → 2023-06-11 | Outpatient (CLI) | payer OTHER ==
[~2023-06-11] MED LIST changes: +IBU600 M1 PO
== END | disposition home or self-care (01) ==
LOC: RAD 15:03
PROVIDERS: ATTEND Internal Medicine
DX: R05.9 Cough, unspecified (principal); R06.02 Shortness of breath; Z86.16 Personal history of COVID-19

== ENCOUNTER → 2023-08-20 | Outpatient (CLI) | payer OTHER ==
[2023-08-20 13:55] LABS: BASO # 0.1 10*3/uL (0.0-0.1); BASO % 0.5 % (0.0-1.0); EOS # 0.1 10*3/uL (0.0-0.4); EOS % 1.2 % (1.0-4.0); HEMATOCRIT 41.4 % (37.0-47.0); LYMPH # 1.9 10*3/uL (1.3-4.4); LYMPH % 17.2 % (27.0-41.0); MEAN CELL VOLUME 93.5 fl (81.0-99.0); MEAN CORPUSCULAR HGB 31.6 pg (27.0-31.0); MEAN CORPUSCULAR HGB CONC 33.8 g/dl (33.0-37.0); MEAN PLATELET VOLUME 9.4 fl (9.6-12.3); MONO % 9.5 % (3.0-9.0); NEUT # 7.8 10*3/uL (2.3-7.9); NEUT % 71.2 % (47.0-73.0); PLATELET COUNT AUTOMATED 441 10*3/uL (130-400); RED BLOOD COUNT 4.43 10*6/uL (4.10-5.10); RED CELL DISTRI WIDTH 13.2 % (0-14.5); WHITE BLOOD COUNT 10.9 10*3/uL (4.8-10.8)
[2023-08-22 12:05] LABS: IMMUNOGLOBULIN G, QNT 747 mg/dL (586-1602); IMMUNOGLOBULIN M, QNT 18 mg/dL (26-217)
== END | disposition home or self-care (01) ==
LOC: LAB 11:53
PROVIDERS: ATTEND Allergy & Immunology
DX: J30.89 Other allergic rhinitis (principal)

== ENCOUNTER → 2023-09-10 | Outpatient (CLI) | payer OTHER | END | disposition home or self-care (01) | LOC: CT 01:13 | PROVIDERS: ATTEND Internal Medicine Critical Care Medicine | DX: J43.9 Emphysema, unspecified (principal); I25.10 Atherosclerotic heart disease of native coronary artery without angina pectoris; I71.21 Aneurysm of the ascending aorta, without rupture; Z87.891 Personal history of nicotine dependence ==

== ENCOUNTER → 2023-09-13 | Outpatient (CLI) | payer OTHER ==
[2023-09-14 14:08] LABS: ANGIOTENSIN-CONVERTING ENZYME 36 U/L (14-82)
[2023-09-14 15:07] LABS: IGG SUBCLASS 1 463 mg/dL (248-810); IGG SUBCLASS 2 219 mg/dL (130-555); IGG SUBCLASS 3 9 mg/dL (15-102); IMMUNOGLOBULIN G, QNT 808 mg/dL (586-1602)
[2023-09-18 09:06] LABS: CRYPTOCOCCUS ANTIGEN Negative (Negative)
== END | disposition home or self-care (01) ==
LOC: LAB 00:04
PROVIDERS: ATTEND Internal Medicine Critical Care Medicine
DX: J84.9 Interstitial pulmonary disease, unspecified (principal); G47.33 Obstructive sleep apnea (adult) (pediatric); G25.81 Restless legs syndrome; G47.14 Hypersomnia due to medical condition; J44.9 Chronic obstructive pulmonary disease, unspecified; J84.10 Pulmonary fibrosis, unspecified

== ENCOUNTER → 2023-09-26 | Outpatient (CLI) | payer OTHER | END | disposition home or self-care (01) | LOC: CT 02:30 | PROVIDERS: ATTEND Internal Medicine Critical Care Medicine | DX: J44.9 Chronic obstructive pulmonary disease, unspecified (principal); I71.21 Aneurysm of the ascending aorta, without rupture; G47.33 Obstructive sleep apnea (adult) (pediatric); R91.8 Other nonspecific abnormal finding of lung field; G25.81 Restless legs syndrome; I25.10 Atherosclerotic heart disease of native coronary artery without angina pectoris; G47.14 Hypersomnia due to medical condition; Z86.16 Personal history of COVID-19 ==

== ENCOUNTER 2023-12-26 08:30 | Inpatient (IN) | payer OTHER ==
[~2023-12-26] VITALS: Ht 162.5 cm; Wt 69.4 kg
[2023-12-26 08:39] VITALS: BP 144/80
[2023-12-26 09:19] LABS: BASO # 0.1 10*3/uL (0.0-0.1); BASO % 1.1 % (0.0-1.0); EOS # 0.1 10*3/uL (0.0-0.4); EOS % 1.6 % (1.0-4.0); HEMATOCRIT 40.9 % (37.0-47.0); LYMPH # 1.4 10*3/uL (1.3-4.4); LYMPH % 16.8 % (27.0-41.0); MEAN CELL VOLUME 90.3 fl (81.0-99.0); MEAN CORPUSCULAR HGB 27.8 pg (27.0-31.0); MEAN CORPUSCULAR HGB CONC 30.8 g/dl (33.0-37.0); MEAN PLATELET VOLUME 9.3 fl (9.6-12.3); MONO # 0.7 10*3/uL (0.1-1.0); NEUT % 72.3 % (47.0-73.0); PLATELET COUNT AUTOMATED 466 10*3/uL (130-400); RED BLOOD COUNT 4.53 10*6/uL (4.10-5.10); RED CELL DISTRI WIDTH 14.5 % (0-14.5); WHITE BLOOD COUNT 8.3 10*3/uL (4.8-10.8)
[2023-12-26 09:36] LABS: ALKALINE PHOSPHATASE 83 U/L (46-116); BUN 10 mg/dl (9-23); CHLORIDE 105 mmol/L (98-107); POTASSIUM 3.6 mmol/L (3.4-5.1); TOTAL PROTEIN 6.6 gm/dL (6.0-8.0)
[2023-12-26 09:37] LABS: SGPT/ALT < 7 U/L (5-49)
[2023-12-26] MEDS ORDERED: Albuterol Sulf/Ipratropium 3 ML VIAL NEB ONE (09:45)
[2023-12-26] MEDS ORDERED: methylPREDNISolone sod succ 40 MG VIAL IV ONE (13:25)
[2023-12-26] MEDS ORDERED: Ceftriaxone Sodium 1 GM/10 ML SYR IV ONE (13:25)
[2023-12-26] MEDS ORDERED: AZITHROMYCIN 250 ML IV ONE (13:25)
[2023-12-26] MEDS ORDERED: Magnesium Hydroxide 30 ML UDC PO PRN (13:40)
[2023-12-26] MEDS ORDERED: Ondansetron Hydrochloride 4 MG/2 ML VIAL IV PRN (13:40)
[2023-12-26] MEDS ORDERED: ACETAMINOPHEN 325 MG TAB PO PRN (13:40)
[2023-12-26 13:45] VITALS: BP 154/68
[2023-12-26] MEDS ORDERED: Albuterol Sulf/Ipratropium 3 ML VIAL NEB SCH (13:45)
[2023-12-26 14:10] VITALS: BP 145/88
[2023-12-26] MEDS ORDERED: DEXTROSE 10 % IN WATER 250 ML IV PRN (14:20)
[2023-12-26] MEDS ORDERED: INSULIN LISPRO 1 UNIT/0.01 ML SQ SCH (16:30)
[2023-12-26] MEDS ORDERED: TRICOR145 M1 PO (19:31)
[2023-12-26] MEDS ORDERED: HYDRALAZINE HYD50 MG PO (19:32)
[2023-12-26] MEDS ORDERED: Hydralazine Hyd25 MG PO (19:32)
[2023-12-26] MEDS ORDERED: Imdur SA60 MG PO (19:33)
[2023-12-26] MEDS ORDERED: NYSTATIN1 EAC3 MC (19:34)
[2023-12-26] MEDS ORDERED: MONTELUKAST SOD10 MG PO (19:35)
[2023-12-26] MEDS ORDERED: DULOXETINE HCL60 MG PO (19:35)
[2023-12-26] MEDS ORDERED: GUAIFEN-CODEIN118 ML PO (19:35)
[2023-12-26] MEDS ORDERED: JARDIANCE10 MG PO (19:36)
[2023-12-26] MEDS ORDERED: OMEPRAZOLE40 MG PO (19:38)
[2023-12-26] MEDS ORDERED: DICYCLOMINE HYD10 MG PO (19:38)
[2023-12-26] MEDS ORDERED: ROPINIROLE HYDRO1 MG PO (19:38)
[2023-12-26] MEDS ORDERED: Dicyclomine Hydrochloride 10 MG CAP PO PRN (19:55)
[2023-12-26 20:00] VITALS: BP 176/92
[2023-12-26] MEDS ORDERED: Albuterol Sulfate 2.5 MG/3 ML VIAL NEB PRN (20:10)
[2023-12-26] MEDS ORDERED: Melatonin 5 MG TABLET PO PRN (21:15)
[2023-12-26] MEDS ORDERED: Nicotine 14 MG PATCH T SCH (22:00)
[2023-12-26] MEDS ORDERED: Duloxetine Hydrochloride 60 MG CAP PO SCH (22:00)
[2023-12-26] MEDS ORDERED: Ropinirole Hydrochloride 1 MG TAB PO SCH (22:00)
[2023-12-26] MEDS ORDERED: hydrALAZINE hydrochloride 50 MG TAB PO SCH (22:00)
[2023-12-26] MEDS ORDERED: BENZONATATE 100 MG CAP PO SCH (22:00)
[2023-12-26] MEDS ORDERED: NYSTATIN 15 GM BOT T SCH (22:00)
[2023-12-26] MEDS ORDERED: DICLOFENAC SODIUM 100 GM TUBE T SCH (22:00)
[2023-12-26] MEDS ORDERED: ISOSORBIDE MONONITRATE 60 MG TAB PO SCH (22:00)
[2023-12-26] MEDS ORDERED: methylPREDNISolone sod succ 40 MG VIAL IV SCH (22:00)
[2023-12-26] MEDS ORDERED: GUAIFENESIN 600 MG TAB ER PO SCH (22:00)
[2023-12-27] VITALS: BP 157/72
[2023-12-27] MEDS ORDERED: OMEPRAZOLE 20 MG CAP PO SCH (06:00)
[2023-12-27] MEDS ORDERED: Levothyroxine Sodium 150 MCG TAB PO SCH (06:00)
[2023-12-27 06:07] LABS: BASO % 0.3 % (0.0-1.0); EOS # 0.1 10*3/uL (0.0-0.4); EOS % 0.5 % (1.0-4.0); HEMATOCRIT 43.2 % (37.0-47.0); LYMPH # 0.9 10*3/uL (1.3-4.4); LYMPH % 9.6 % (27.0-41.0); MEAN CORPUSCULAR HGB 27.9 pg (27.0-31.0); MEAN PLATELET VOLUME 9.7 fl (9.6-12.3); MONO # 0.5 10*3/uL (0.1-1.0); MONO % 5.4 % (3.0-9.0); NEUT # 8.2 10*3/uL (2.3-7.9); NEUT % 83.6 % (47.0-73.0); PLATELET COUNT AUTOMATED 522 10*3/uL (130-400); RED CELL DISTRI WIDTH 14.6 % (0-14.5); WHITE BLOOD COUNT 9.8 10*3/uL (4.8-10.8)
[2023-12-27 06:28] LABS: ALKALINE PHOSPHATASE 89 U/L (46-116); BUN 10 mg/dl (9-23); CHLORIDE 103 mmol/L (98-107); POTASSIUM 3.8 mmol/L (3.4-5.1); SGPT/ALT 8 U/L (5-49); TOTAL PROTEIN 7.4 gm/dL (6.0-8.0)
[2023-12-27 08:00] VITALS: BP 152/79
[2023-12-27 09:14] LABS: BILIRUBIN Negative (Negative); BLOOD Negative (Negative); CLARITY Clear (Clear); COLOR Yellow (Yellow); GLUCOSE 3+ (Negative); KETONE Negative (Negative); LEUKO ESTERASE Negative (Negative); NITRITE Negative (Negative); UROBILINOGEN 0.2 E.U./dl (0.0-1.0)
[2023-12-27] MEDS ORDERED: ASPIRIN, CHEWABLE 81 MG TAB PO SCH (10:00)
[2023-12-27] MEDS ORDERED: FENOFIBRATE 145 MG TAB PO SCH (10:00)
[2023-12-27] MEDS ORDERED: EMPAGLIFLOZIN 10 MG TABLET PO SCH (10:00)
[2023-12-27] MEDS ORDERED: Enoxaparin Sodium 40 MG/0.4 ML SYR SC SCH (10:00)
[2023-12-27 12:00] VITALS: BP 160/72
[2023-12-27] MEDS ORDERED: hydrALAZINE hydrochloride 25 MG TAB PO SCH (12:00)
[2023-12-27 13:10] VITALS: BP 160/70
[2023-12-27] MEDS ORDERED: AZITHROMYCIN 250 ML IV SCH (14:00)
[2023-12-27 15:00] VITALS: BP 153/73
[2023-12-27] MEDS ORDERED: Ceftriaxone Sodium 1 GM in SYRINGE INFUSION 10 ML IV SCH (15:00)
[2023-12-27] MEDS ORDERED: Montelukast Sodium 10 MG TAB PO SCH (18:00)
[2023-12-27 20:00] VITALS: BP 179/94
[2023-12-28] VITALS (8 sets, daily range): BP systolic 117–168; BP diastolic 73–97
[2023-12-28] MEDS ORDERED: ACETAMINOPHEN 325 MG TAB PO ONE (00:40)
[2023-12-28] MEDS ORDERED: Albuterol Sulf/Ipratropium 3 ML VIAL NEB ONE ×3 (00:40→09:50)
[2023-12-28 06:21] LABS: BASO # 0.1 10*3/uL (0.0-0.1); BASO % 0.4 % (0.0-1.0); EOS # 0.1 10*3/uL (0.0-0.4); EOS % 0.6 % (1.0-4.0); HEMATOCRIT 42.2 % (37.0-47.0); LYMPH # 1.5 10*3/uL (1.3-4.4); LYMPH % 10.7 % (27.0-41.0); MEAN CELL VOLUME 89.8 fl (81.0-99.0); MEAN CORPUSCULAR HGB 28.1 pg (27.0-31.0); MEAN CORPUSCULAR HGB CONC 31.3 g/dl (33.0-37.0); MEAN PLATELET VOLUME 9.4 fl (9.6-12.3); MONO # 0.9 10*3/uL (0.1-1.0); MONO % 6.6 % (3.0-9.0); PLATELET COUNT AUTOMATED 454 10*3/uL (130-400); RED CELL DISTRI WIDTH 14.7 % (0-14.5); WHITE BLOOD COUNT 13.6 10*3/uL (4.8-10.8)
[2023-12-28] MEDS ORDERED: Albuterol Sulfate 2.5 MG/0.5 ML VIAL NEB ONE (09:09)
[2023-12-28] MEDS ORDERED: Lidocaine Hydrochloride 4% 5 ML AMP ONE (09:09)
[2023-12-28] MEDS ORDERED: NYSTATIN 500,000 UNITS/5 ML UDC PO SCH (10:00)
[2023-12-28] MEDS ORDERED: PROPOFOL 200 MG/20 ML VIAL IV ONE (17:04)
[2023-12-29] VITALS: BP 141/88
[2023-12-29 08:10] VITALS: BP 171/90
[2023-12-29 12:03] VITALS: BP 150/75
[2023-12-29 13:06] LABS: ACID FAST SPEC PROCESSING Concentration (.)
[2023-12-29 16:00] VITALS: BP 153/86
[2023-12-29 20:00] VITALS: BP 153/95
[2023-12-30] VITALS: BP 179/91
[2023-12-30] MEDS ORDERED: BENZONATATE 100 MG CAP PO PRN (01:53)
[2023-12-30] MEDS ORDERED: IBUPROFEN 400 MG TAB PO PRN (01:55)
[2023-12-30 08:00] VITALS: BP 153/80
[2023-12-30] MEDS ORDERED: MUCINEX1200 M1 PO (09:38)
[2023-12-30] MEDS ORDERED: PREDNISONE10 MG PO (09:38)
[2023-12-30] MEDS ORDERED: VIBRAMYCIN HYC100 MG PO (09:38)
== END 2023-12-30 10:51 | disposition home health service (06) | DRG 191 ==
LOC: ED 08:30 → EDHOLD 13:29 → 4E 13:29
PROVIDERS: Internal Medicine; Internal Medicine Critical Care Medicine; Student in an Organized Health Care Education/Training Program; ADMIT Internal Medicine; ATTEND Internal Medicine
PROC: 0BC98ZZ Extirpation of Matter from Lingula Bronchus, Via Natural or Artificial Opening Endoscopic (ICD-10-PCS; principal; 2023-12-28)
PROC: 0BC48ZZ Extirpation of Matter from Right Upper Lobe Bronchus, Via Natural or Artificial Opening Endoscopic (ICD-10-PCS; 2023-12-28)
PROC: 0BC88ZZ Extirpation of Matter from Left Upper Lobe Bronchus, Via Natural or Artificial Opening Endoscopic (ICD-10-PCS; 2023-12-28)
PROC: 0BC58ZZ Extirpation of Matter from Right Middle Lobe Bronchus, Via Natural or Artificial Opening Endoscopic (ICD-10-PCS; 2023-12-28)
PROC: 0BC68ZZ Extirpation of Matter from Right Lower Lobe Bronchus, Via Natural or Artificial Opening Endoscopic (ICD-10-PCS; 2023-12-28)
DX: J44.1 Chronic obstructive pulmonary disease with (acute) exacerbation (principal); I50.32 Chronic diastolic (congestive) heart failure; J98.11 Atelectasis; T17.890A Other foreign object in other parts of respiratory tract causing asphyxiation, initial encounter; J44.0 Chronic obstructive pulmonary disease with (acute) lower respiratory infection; R35.0 Frequency of micturition; F31.9 Bipolar disorder, unspecified; I25.10 Atherosclerotic heart disease of native coronary artery without angina pectoris; E89.0 Postprocedural hypothyroidism; F17.210 Nicotine dependence, cigarettes, uncomplicated; F41.9 Anxiety disorder, unspecified; E78.5 Hyperlipidemia, unspecified; I11.0 Hypertensive heart disease with heart failure; D75.839 Thrombocytosis, unspecified; E83.51 Hypocalcemia; E11.65 Type 2 diabetes mellitus with hyperglycemia; G47.33 Obstructive sleep apnea (adult) (pediatric); J20.9 Acute bronchitis, unspecified; Z71.6 Tobacco abuse counseling; Z79.899 Other long term (current) drug therapy; Z79.01 Long term (current) use of anticoagulants; Z79.2 Long term (current) use of antibiotics; Z86.16 Personal history of COVID-19; Z88.1 Allergy status to other antibiotic agents; Z88.8 Allergy status to other drugs, medicaments and biological substances; Z91.09 Other allergy status, other than to drugs and biological substances; Z90.49 Acquired absence of other specified parts of digestive tract; Z82.49 Family history of ischemic heart disease and other diseases of the circulatory system; Z80.8 Family history of malignant neoplasm of other organs or systems; W44.F9XA Other object of natural or organic material, entering into or through a natural orifice, initial encounter; Y93.89 Activity, other specified; Y92.89 Other specified places as the place of occurrence of the external cause; Y99.8 Other external cause status

== ENCOUNTER → 2023-12-28 | Outpatient (CLI) | payer OTHER ==
[~2023-12-28] MED LIST changes: +Albuterol Sulfate 2.5 MG/0.5 ML VIAL NEB ONE; +DICYCLOMINE HYD10 MG PO; +DULOXETINE HCL60 MG PO; +GUAIFEN-CODEIN118 ML PO; +HYDRALAZINE HYD50 MG PO; +Hydralazine Hyd25 MG PO; +Imdur SA60 MG PO; +JARDIANCE10 MG PO; +Lidocaine Hydrochloride 4% 5 ML AMP NEB ONE; +MONTELUKAST SOD10 MG PO; +MUCINEX1200 M1 PO; +NYSTATIN1 EAC3 MC; +OMEPRAZOLE40 MG PO; +ROPINIROLE HYDRO1 MG PO; +SODIUM CHLORIDE 0.9% 1,000 ML IV ONE; +TRICOR145 M1 PO; +VIBRAMYCIN HYC100 MG PO
== END | disposition home or self-care (01) ==
LOC: CT 01:16
PROVIDERS: ATTEND Internal Medicine Critical Care Medicine
DX: Z53.9 Procedure and treatment not carried out, unspecified reason (principal); I10 Essential (primary) hypertension

== ENCOUNTER 2024-01-21 11:00 | Emergency (ER) | payer OTHER ==
[~2024-01-21] VITALS: Ht 162.5 cm; Wt 68.9 kg
[~2024-01-21 11:00] MED LIST changes: -PERCOCET 5-3251 EACH PO
[2024-01-21 11:26] VITALS: BP 149/78
[2024-01-21] MEDS ORDERED: Acetaminophen/Oxycodone 5 MG/325 MG TABLET PO ONE (11:45)
[2024-01-21] MEDS ORDERED: PERCOCET 5-3251 EACH PO (15:03)
== END 2024-01-21 15:08 | disposition home or self-care (01) ==
LOC: ED 11:00
DX: S22.41XA Multiple fractures of ribs, right side, initial encounter for closed fracture (principal); S09.8XXA Other specified injuries of head, initial encounter; M25.531 Pain in right wrist; Z91.041 Radiographic dye allergy status; Z88.5 Allergy status to narcotic agent; J44.9 Chronic obstructive pulmonary disease, unspecified; I25.10 Atherosclerotic heart disease of native coronary artery without angina pectoris; F31.9 Bipolar disorder, unspecified; J45.909 Unspecified asthma, uncomplicated; I11.0 Hypertensive heart disease with heart failure; I50.9 Heart failure, unspecified; E78.5 Hyperlipidemia, unspecified; Z90.49 Acquired absence of other specified parts of digestive tract; Z90.89 Acquired absence of other organs; Z98.890 Other specified postprocedural states; F17.210 Nicotine dependence, cigarettes, uncomplicated; W19.XXXA Unspecified fall, initial encounter; Y93.01 Activity, walking, marching and hiking; Y92.89 Other specified places as the place of occurrence of the external cause; Y99.8 Other external cause status

== ENCOUNTER → 2024-01-21 | Outpatient (CLI) | payer OTHER ==
[~2024-01-21] MED LIST changes: -Albuterol Sulfate 2.5 MG/0.5 ML VIAL NEB ONE; -Lidocaine Hydrochloride 4% 5 ML AMP NEB ONE; +PERCOCET 5-3251 EACH PO; -SODIUM CHLORIDE 0.9% 1,000 ML IV ONE
== END | disposition home or self-care (01) ==
LOC: MRI 02:17
PROVIDERS: ATTEND Internal Medicine
DX: M51.17 Intervertebral disc disorders with radiculopathy, lumbosacral region (principal); M48.07 Spinal stenosis, lumbosacral region; M54.50 Low back pain, unspecified; M47.27 Other spondylosis with radiculopathy, lumbosacral region

== ENCOUNTER → 2024-01-30 | Outpatient (CLI) | payer OTHER ==
[~2024-01-30] MED LIST changes: +PERCOCET 5-3251 EACH PO
== END | disposition home or self-care (01) ==
LOC: RAD 10:47
PROVIDERS: ATTEND Student in an Organized Health Care Education/Training Program
DX: J44.1 Chronic obstructive pulmonary disease with (acute) exacerbation (principal); I51.7 Cardiomegaly

== ENCOUNTER → 2024-02-04 | Outpatient (CLI) | payer OTHER | END | disposition home or self-care (01) | LOC: RAD 01:25 | PROVIDERS: ATTEND Internal Medicine | DX: I07.1 Rheumatic tricuspid insufficiency (principal); I50.30 Unspecified diastolic (congestive) heart failure; I71.20 Thoracic aortic aneurysm, without rupture, unspecified; M85.851 Other specified disorders of bone density and structure, right thigh; M85.88 Other specified disorders of bone density and structure, other site; I11.0 Hypertensive heart disease with heart failure ==

== ENCOUNTER → 2024-02-20 | Outpatient (CLI) | payer OTHER | LOC: MAMMO 01:41 | PROVIDERS: ATTEND Internal Medicine | DX: Z12.31 Encounter for screening mammogram for malignant neoplasm of breast (principal) ==

== ENCOUNTER → 2024-02-28 | Outpatient (CLI) | payer OTHER | END | disposition home or self-care (01) | LOC: CT 01:32 | PROVIDERS: ATTEND Internal Medicine Pulmonary Disease | DX: I77.810 Thoracic aortic ectasia (principal); I70.0 Atherosclerosis of aorta; I25.10 Atherosclerotic heart disease of native coronary artery without angina pectoris; M47.814 Spondylosis without myelopathy or radiculopathy, thoracic region ==

== ENCOUNTER → 2024-06-05 | Outpatient (CLI) | payer OTHER ==
[2024-06-05 12:42] LABS: BASO # 0.1 10*3/uL (0.0-0.1); BASO % 0.9 % (0.0-1.0); EOS # 0.1 10*3/uL (0.0-0.4); EOS % 2.1 % (1.0-4.0); HEMATOCRIT 41.8 % (37.0-47.0); LYMPH # 1.8 10*3/uL (1.3-4.4); LYMPH % 27.7 % (27.0-41.0); MEAN CELL VOLUME 88.7 fl (81.0-99.0); MEAN CORPUSCULAR HGB CONC 31.6 g/dl (33.0-37.0); MONO # 0.9 10*3/uL (0.1-1.0); MONO % 12.9 % (3.0-9.0); NEUT # 3.7 10*3/uL (2.3-7.9); NEUT % 55.9 % (47.0-73.0); PLATELET COUNT AUTOMATED 304 10*3/uL (130-400); RED BLOOD COUNT 4.71 10*6/uL (4.10-5.10); RED CELL DISTRI WIDTH 14.9 % (0-14.5); WHITE BLOOD COUNT 6.6 10*3/uL (4.8-10.8)
[2024-06-05 12:44] LABS: BILIRUBIN Negative (Negative); BLOOD Negative (Negative); CLARITY Clear (Clear); COLOR Yellow (Yellow); GLUCOSE 3+ (Negative); KETONE Trace (Negative); LEUKO ESTERASE Negative (Negative); NITRITE Negative (Negative); PH 5.5 (4.5-8.0); SPECIFIC GRAVITY >= 1.030 (1.001-1.030); UROBILINOGEN 0.2 E.U./dl (0.0-1.0)
[2024-06-05 12:56] LABS: HYALINE CAST 0-2
[2024-06-05 13:10] LABS: ALKALINE PHOSPHATASE 71 U/L (46-116); BUN 13 mg/dl (9-23); CHLORIDE 104 mmol/L (98-107); CHOLESTEROL 170 mg/dL (<200); FREE T4 1.57 ng/dl (0.89-1.76); LDL CHOLESTEROL 63 mg/dL (9-159); POTASSIUM 3.7 mmol/L (3.4-5.1); SGPT/ALT 9 U/L (5-49); TOTAL PROTEIN 7.1 gm/dL (6.0-8.0); TRIGLYCERIDES 169 mg/dl (<150)
== END | disposition home or self-care (01) ==
LOC: LAB 12:16
PROVIDERS: ATTEND Internal Medicine Pulmonary Disease
DX: Z01.818 Encounter for other preprocedural examination (principal); J44.9 Chronic obstructive pulmonary disease, unspecified; D83.9 Common variable immunodeficiency, unspecified; I51.7 Cardiomegaly; E11.9 Type 2 diabetes mellitus without complications

== ENCOUNTER → 2024-10-28 | Outpatient (CLI) | payer MEDICARE ==
[2024-10-28 11:50] LABS: BASO # 0.1 10*3/uL (0.0-0.1); BASO % 0.9 % (0.0-1.0); EOS # 0.2 10*3/uL (0.0-0.4); EOS % 1.9 % (1.0-4.0); HEMATOCRIT 40.6 % (37.0-47.0); MEAN CELL VOLUME 83.2 fl (81.0-99.0); MEAN CORPUSCULAR HGB 24.6 pg (27.0-31.0); MEAN CORPUSCULAR HGB CONC 29.6 g/dl (33.0-37.0); MEAN PLATELET VOLUME 10.2 fl (9.6-12.3); MONO # 0.8 10*3/uL (0.1-1.0); MONO % 8.6 % (3.0-9.0); NEUT # 6.3 10*3/uL (2.3-7.9); NEUT % 68.5 % (47.0-73.0); PLATELET COUNT AUTOMATED 523 10*3/uL (130-400); RED BLOOD COUNT 4.88 10*6/uL (4.10-5.10); RED CELL DISTRI WIDTH 15.6 % (0-14.5); WHITE BLOOD COUNT 9.2 10*3/uL (4.8-10.8)
[2024-10-28 12:19] LABS: ALKALINE PHOSPHATASE 95 U/L (46-116); BUN 15 mg/dl (9-23); CHLORIDE 105 mmol/L (98-107); CHOLESTEROL 189 mg/dL (<200); FREE T4 1.71 ng/dl (0.89-1.76); LDL CHOLESTEROL 91 mg/dL (9-159); POTASSIUM 3.8 mmol/L (3.4-5.1); TOTAL PROTEIN 7.3 gm/dL (6.0-8.0); TRIGLYCERIDES 200 mg/dl (<150)
[2024-10-28 12:20] LABS: SGPT/ALT < 7 U/L (5-49)
[2024-10-28 12:52] LABS: BILIRUBIN Negative (Negative); BLOOD Negative (Negative); CLARITY Clear (Clear); COLOR Yellow (Yellow); GLUCOSE 3+ (Negative); KETONE Negative (Negative); LEUKO ESTERASE Negative (Negative); NITRITE Negative (Negative); SPECIFIC GRAVITY >= 1.030 (1.001-1.030); UROBILINOGEN 0.2 E.U./dl (0.0-1.0)
[2024-10-28 13:22] LABS: EPITHELIAL CELLS 16-20
== END | disposition home or self-care (01) ==
LOC: LAB 01:41
PROVIDERS: ATTEND Internal Medicine Pulmonary Disease
DX: Z01.818 Encounter for other preprocedural examination (principal); I44.4 Left anterior fascicular block; Z79.899 Other long term (current) drug therapy

== ENCOUNTER → 2025-02-25 | Outpatient (CLI) | payer MEDICARE | END | disposition home or self-care (01) | LOC: CT 02-24 09:00 → MAMMO 00:36 → CT 10:00 | PROVIDERS: ATTEND Internal Medicine | DX: Z12.31 Encounter for screening mammogram for malignant neoplasm of breast (principal); Z12.2 Encounter for screening for malignant neoplasm of respiratory organs; I25.10 Atherosclerotic heart disease of native coronary artery without angina pectoris; R92.323 Mammographic fibroglandular density, bilateral breasts; Z87.891 Personal history of nicotine dependence ==

== ENCOUNTER → 2025-03-11 | Outpatient (CLI) | payer MEDICARE ==
[2025-03-12 08:08] LABS: IMMUNOGLOBULIN M, Qn 17 mg/dL (26-217)
[2025-03-12 14:07] LABS: IGG SUBCLASS 1 296 mg/dL (248-810); IGG SUBCLASS 2 78 mg/dL (130-555); IGG SUBCLASS 3 4 mg/dL (15-102); IMMUNOGLOBULIN G, Qn 488 mg/dL (586-1602)
== END | disposition home or self-care (01) ==
LOC: LAB 16:30
PROVIDERS: ATTEND Allergy & Immunology
DX: D80.1 Nonfamilial hypogammaglobulinemia (principal)